=== PATIENT | female | born 1985 | race Caucasian/White ===

== ENCOUNTER 2021-08-24 19:50 | Observation (INO) | payer OTHER ==
[2021-08-24 20:22] VITALS: BMI 25.0
[2021-08-24] MEDS ORDERED: ACETAMINOPHEN 1000 MG/100 ML BAG IVPB ONE (20:34)
[2021-08-24] MEDS ORDERED: LACTATED RINGERS SOLUTION 1000 ML INFUS.BAG IV ONE (20:38)
[2021-08-24] MEDS ORDERED: ONDANSETRON 4 MG/2 ML VIAL IVPUSH ONE (20:38)
[2021-08-24] MEDS ORDERED: ONDANSETRON 4 MG/2 ML VIAL ONE ×2 (20:41→22:57)
[2021-08-24] MEDS ORDERED: ACETAMINOPHEN INJECTION 100 ML IVPB ONE (20:41)
[2021-08-24] MEDS ORDERED: morphine CARPU-JECT 4 MG/1 ML DISP.SYRIN IVPUSH ONE (21:09)
[2021-08-24] MEDS ORDERED: morphine SULFATE 4 MG/ML VIAL ONE (21:09)
[2021-08-24 21:15] LABS: BASO % 0.3 % (0-2.0); EOS % 0.6 % (0-4.5); HEMATOCRIT 38.1 % (32.4-45.2); HEMOGLOBIN 12.5 GM/dL (10.7-15.3); LYMPH % 11.3 % (8-40); MCH 29.6 pg (25.7-33.7); MEAN CELL VOLUME 89.9 fl (80-96); MEAN PLT VOLUME 8.5 fl (7.5-11.1); MONO % 9.3 % (3.8-10.2); NEUT % 78.5 % (42.8-82.8); PLATELET COUNT 316 10^3/uL (134-434); RBC 4.23 M/mm3 (3.60-5.2); WHITE BLOOD COUNT 12.4 K/mm3 (4.0-10.0)
[2021-08-24 21:25] LABS: INR 1.04 (0.83-1.09)
[2021-08-24 21:27] LABS: ACTIVATED PTT 31.9 SECONDS (25.2-36.5)
[2021-08-24] MEDS ORDERED: morphine CARPU-JECT 2 MG/1 ML DISP.SYRIN IVPUSH ONE (21:27)
[2021-08-24 21:30] LABS: ALBUMIN 3.5 g/dl (3.4-5.0); BLOOD UREA NITROGEN 10.1 mg/dL (7-18)
[2021-08-24 21:33] LABS: CREATININE 0.6 mg/dL (0.55-1.3)
[2021-08-24 21:35] LABS: BILIRUBIN,TOTAL 0.2 mg/dL (0.2-1)
[2021-08-24] MEDS ORDERED: HYDROmorphone HCL CARPU-JECT 2 MG/1 ML DISP.SYRIN IVPUSH ONE ×3 (21:47→22:34)
[2021-08-24] MEDS ORDERED: HYDROmorphone HCl 2 MG/ML VIAL ONE ×2 (21:51→23:25)
[2021-08-24] MEDS ORDERED: ROCURONIUM BROMIDE 50 MG/5 ML SYRINGE ONE (22:57)
[2021-08-24] MEDS ORDERED: PROPOFOL 20 ML ONE (22:57)
[2021-08-24] MEDS ORDERED: SUCCINYLCHOLINE CHLORIDE 200 MG/10 ML SYRINGE ONE (22:57)
[2021-08-24] MEDS ORDERED: KETOROLAC TROMETHAMINE 30 MG/1 ML VIAL ONE (22:57)
[2021-08-24] MEDS ORDERED: MIDAZOLAM HCL 2 MG/2 ML SINGLE DOSE VIAL ONE ×2 (22:57)
[2021-08-24] MEDS ORDERED: DEXAMETHASONE SOD PHOSPHATE 4 MG/1 ML VIAL ONE (22:57)
[2021-08-24] MEDS ORDERED: LIDOCAINE HCL/PF 2% SDV 5ML VIAL ONE (22:57)
[2021-08-24] MEDS ORDERED: HYDROmorphone HCL CARPU-JECT 2 MG/1 ML DISP.SYRIN IVPUSH STA (23:29)
[2021-08-25] MEDS ORDERED: ONDANSETRON 4 MG/2 ML VIAL IVPUSH PRN (00:06)
[2021-08-25] MEDS ORDERED: HYDROmorphone HCl 2 MG/ML VIAL IVPUSH PRN ×2 (00:07)
[2021-08-25] MEDS ORDERED: LACTATED RINGERS SOLUTION 1,000 ML IV SCH (00:15)
[2021-08-25] MEDS ORDERED: BUPIVACAINE HCL/PF 0.5% (5MG/ML) 10 ML VIAL ONE (00:27)
[2021-08-25] MEDS ORDERED: BUPIVACAINE HCL/PF 0.5% (5 MG/ML) 30 ML VIAL IJ ONE ×2 (00:31)
[2021-08-25] MEDS ORDERED: GLYCOPYRROLATE 0.2 MG/1 ML VIAL ONE (00:31)
[2021-08-25] MEDS ORDERED: NEOSTIGMINE METHYLSULFATE 0.5 MG/ML - 10 ML MDV ONE (00:31)
[2021-08-25] MEDS ORDERED: IBUPROFEN 600 MG TABLET (FP) PO PRN (00:54)
[2021-08-25] MEDS ORDERED: ACETAMINOPHEN 325 MG TABLET (FP) PO PRN (00:54)
[2021-08-25] MEDS ORDERED: oxyCODONE HCL 5 MG TABLET PO PRN (00:55)
[2021-08-25] MEDS ORDERED: ONDANSETRON 4 MG/2 ML VIAL IM PRN (00:55)
[2021-08-25] MEDS ORDERED: HYDROmorphone HCl 2 MG/ML VIAL IVPUSH ONE (01:21)
[2021-08-25 10:18] LABS: URINE APPEARANCE CLEAR; URINE BILIRUBIN NEGATIVE (NEGATIVE); URINE COLOR YELLOW; URINE GLUCOSE (UA) NEGATIVE (NEGATIVE); URINE KETONE 1+ (NEGATIVE); URINE LEUK ESTERASE NEGATIVE (NEGATIVE); URINE NITRITE NEGATIVE (NEGATIVE); URINE PROTEIN NEGATIVE (NEGATIVE); URINE UROBILINOGEN 0.2 mg/dL (0.2-1.0)
[2021-08-25 11:14] VITALS: BP 107/58; PULSE 50; TEMP 99.4
== END 2021-08-25 13:00 | disposition home or self-care (01) ==
LOC: JER 19:50 → J3W 08-25 03:01 → JER 08-25 03:41
PROVIDERS: ADMIT Obstetrics & Gynecology; ATTEND Obstetrics & Gynecology
PROC: 0UB14ZZ Excision of Left Ovary, Percutaneous Endoscopic Approach (ICD-10-PCS; principal; 2021-08-25)
PROC: 0UB64ZZ Excision of Left Fallopian Tube, Percutaneous Endoscopic Approach (ICD-10-PCS; 2021-08-25)
PROC: 3E033NZ Introduction of Analgesics, Hypnotics, Sedatives into Peripheral Vein, Percutaneous Approach (ICD-10-PCS; 2021-08-25)
PROC: 3E0337Z Introduction of Electrolytic and Water Balance Substance into Peripheral Vein, Percutaneous Approach (ICD-10-PCS; 2021-08-25)
PROC: 3E033GC Introduction of Other Therapeutic Substance into Peripheral Vein, Percutaneous Approach (ICD-10-PCS; 2021-08-25)
DX: N83.512 Torsion of left ovary and ovarian pedicle (principal); U07.1 COVID-19
CPT/HCPCS: 36415; 76830-TC; 80053; 81003; 83690; 84703; 85025; 85610; 85730; 86850; 86900; 86901; 87086; 88305-TC; 94760; 96374; 96375; 96376; 99285-25; C9803-CS; G0378; U0003; U0005